=== PATIENT | female | born 1935 | race African-American/Black ===

== ENCOUNTER 2016-08-22 15:45 | Outpatient (CLI) | payer OTHER, MEDICAID ==
[2016-07-07 15:25] VITALS: BMI 17.6
[~2016-08-22 15:45] MED LIST: CHOL100053 PO; CYAN100067 PO; LINA145C PO; MEMA10TA12 PO; MG T1TAB3 PO; MIRT30TA PO; MULT-1117 PO; ONDA4TAB5 PO; REM15 PO; SENN-104 PO; TRAZ-123 PO
== END 2016-08-22 19:02 | disposition home or self-care (01) ==
LOC: SRD 15:45
PROVIDERS: ATTEND Internal Medicine
DX: M19.072 Primary osteoarthritis, left ankle and foot (principal); I70.90 Unspecified atherosclerosis

== ENCOUNTER 2019-01-01 20:14 | Emergency (ER) | payer OTHER, MEDICAID ==
[~2019-01-01] VITALS: Ht 162.6 cm; Wt 47.6 kg
[~2019-01-01 20:14] MED LIST changes: +CYAN100010 PO; -CYAN100067 PO; +MEMA10TA PO; -MEMA10TA12 PO; -TRAZ-123 PO
[2019-01-01 20:15] VITALS: BP_SYST 140
--- NOTE | 2019-01-01 20:20 | NUR ---
Placed in room 3. Placed on patient care secretary, blood pressure machine and pulse oximeter. To gown for exam. Side rails up.
--- NOTE | 2019-01-01 20:26 | NUR ---
LLOYD Martin at bedside examining patient.
--- NOTE | 2019-01-01 20:30 | NUR ---
Pt BIB family from senior care for increased altered mental status and decreased intake. Pt has hx of dementia but family states they noticed increase LOC this morning. No other complaints at this time, denies CP, SOB, N/V. Will continue to monitor.
--- NOTE | 2019-01-01 20:56 | NUR ---
Radiology at bedside for xray
[2019-01-01 21:10] LABS: BASOPHILS % (AUTO) 0.5 % (0.0-2.0); EOSINOPHILS % (AUTO) 0.1 % (0.0-4.0); HEMATOCRIT 38.4 % (36-48); HEMOGLOBIN 12.4 g/dL (12.0-16.0); LYMPHOCYTES # (AUTO) 1.3 K/uL (1.0-5.5); LYMPHOCYTES % (AUTO) 15.7 % (20.5-51.5); MEAN CORPUSCULAR HEMOGLOBIN 29 pg (27-31); MEAN CORPUSCULAR HGB CONC 32 % (32-36); MEAN CORPUSCULAR VOLUME 90 fL (79.0-98.0); MONOCYTES # (AUTO) 0.5 K/uL (0.0-1.0); MONOCYTES % (AUTO) 6.7 % (1.7-9.3); NEUTROPHILS # (AUTO) 6.3 K/uL (1.8-7.7); PLATELET COUNT (AUTO) 355 K/uL (130-430); RED BLOOD CELL COUNT(AUTO) 4.25 MIL/uL (4.2-6.2); RED CELL DISTRIBUTION WIDTH 14.1 % (9.0-15.0); WHITE BLOOD COUNT (AUTO) 8.1 K/uL (4.8-10.8)
[2019-01-01 21:25] LABS: ANION GAP 1 (5-15); CALCIUM 8.5 mg/dL (8.4-11.0); CHLORIDE 105 mmol/L (98-107); CREATININE 0.71 mg/dL (0.55-1.30); GLUCOSE 138 mg/dL (70-99); POTASSIUM 4.7 mmol/L (3.5-5.1); SODIUM SERUM 136 mmol/L (136-145); UREA NITROGEN, BLOOD 18 mg/dL (8-21)
[2019-01-01 21:42] LABS: ALANINE AMINOTRANSFERASE 25 U/L (12-78); ALBUMIN 2.2 g/dL (3.4-4.8); ASPARTATE AMINOTRANSFERASE 35 U/L (10-37); TOTAL BILIRUBIN 0.3 mg/dL (0.0-1.0)
--- NOTE | 2019-01-01 22:55 | NUR ---
# 14 FR In and Out catheter with use of sterile technique. Immediate return of 100 ml dark urine noted. Urine sample collected and sent to lab. Pt tolerated procedure well. Patient unable to toilet self, wears diaper.
--- NOTE | 2019-01-01 23:04 | NUR ---
Pt moved to bed 5
[2019-01-01 23:41] LABS: BILIRUBIN,URINE NEGATIVE (NEGATIVE); CLARITY/URINE CLEAR (CLEAR); COLOR,URINE YELLOW (YELLOW); GLUCOSE,URINE NEGATIVE (NEGATIVE); KETONES,URINE TRACE (NEGATIVE); LEUKOCYTE ESTERASE ,URINE NEGATIVE (NEGATIVE); NITRITE, URINE NEGATIVE (NEGATIVE); PH,URINE 7.5 (5.0-8.0); PROTEIN URINE NEGATIVE (NEGATIVE)
[2019-01-01 23:44] LABS: BLOOD, URINE TRACE (NEGATIVE)
[2019-01-01 23:47] LABS: WBC,URINE 0-3 /HPF (0-3)
[2019-01-01 23:48] LABS: BACTERIA,URINE FEW /HPF (None Seen)
--- NOTE | 2019-01-02 | NUR ---
Pt is sleeping in bed. No acute distress noted at this time
[2019-01-02] MEDS ORDERED: LORazepam 2 MG/ML VIAL (FOR ER USE) IVP ONE (01:30)
--- NOTE | 2019-01-02 01:45 | NUR ---
Pt was escourted to radiology with rad staff and medicated with Ativan prior to CT head.
--- NOTE | 2019-01-02 01:52 | NUR ---
Pt returned in stable condition and tolerated proceedure well. Will continue to monitor.
[2019-01-02 02:46] VITALS: BP_SYST 98
--- NOTE | 2019-01-02 02:47 | NUR ---
Patient given written and verbal discharge instructions and verbalizes understanding. ER MD discussed with patient the results and treatment provided. Patient in stable condition. ID arm band removed. IV catheter removed intact and dressing applied, no active bleeding. Patient educated on pain management and to follow up with PMD. Pain Scale 0. Opportunity for questions provided and answered. Medication side effect fact sheet provided.
== END 2019-01-02 02:46 | disposition home or self-care (01) ==
LOC: SED 20:14
DX: F03.90 Unspecified dementia, unspecified severity, without behavioral disturbance, psychotic disturbance, mood disturbance, and anxiety (principal); R45.1 Restlessness and agitation; Z79.899 Other long term (current) drug therapy
CPT/HCPCS: 36415; 70450; 71045; 80053; 81000; 83605; 84484; 85025; 87040; 87086; 93005; 96374; 99284; J2060